=== PATIENT | male | born 1975 | race African-American/Black ===

== ENCOUNTER 2016-06-16 15:14 | Inpatient (IN) | payer OTHER ==
--- NOTE | 2016-06-16 15:51 | PDOC ---
[id number] 100 06/16/16 15:27 06/16/16 15:27 06/16/16 15:27 06/16/16 15:27 06/16/16 15:27 ED Treatment Course - LABORATORY CBC & Chemistry Diagram: 06/17/16 08:47 06/17/16 08:47 - RADIOLOGY Radiology Studies Ordered: Category Date Time Status CERVICAL SPINE CT W/O CONTR [CT] Stat CT Scan 06/16/16 15:[address] WITHOUT CONTRAST [CT] Stat CT Scan 06/16/16 15:42 Ordered Progress Note - Progress Note Progress Note: brief triage assessment 40 y/o man with hx of seizures on keppra, gerd on nexium presents with 2 falls in the last several days, hit head on Thursday, has right arm and leg weakness ongoing since last Thursday. His gait has been unsteady since Thursday and today he fell again in the shower, hitting his head, unclear if LOC or not. Also c/o generalized malaise without fever or any infectious symptoms. states there has been a lot of arguing and stress at home. PMH: seizures GERD Exam: initially mute, but with encouragement is able to speak and is alert and oriented x 3 with good recall of all details of his history head is without visible or palpable trauma perrl neck with tenderness and pain on rom chest clear heart rr abd soft extrem without trauma neuro with decreased strength right leg more than right arm, although the exam is somewhat variable in terms of the weakness assess: multiple falls, ongoing right sided weakness for 4 days, had some workup at another hospital and comes here now after another fall today with ongoing right sided weakness lab and ct head and c spine ordered, to main ed for further eval *DC/Admit/Observation/Transfer Diagnosis at time of Disposition: Right hemiparesis - Discharge Dispostion Disposition: HOME Condition at time of disposition: Fair
[2016-06-16 15:57] LABS: BASOPHIL 0.8 % (0-2.0); EOSINOPHIL 1.7 % (0-4.5); MCHC 32.9 g/dl (32.0-35.9); MEAN CELL VOLUME 97.4 fl (80-96); NEUTROPHILS 43.8 % (42.8-82.8); PLATELET COUNT 257 K/MM3 (134-434); RDW 13.4 % (11.9-15.9); WHITE BLOOD COUNT 7.3 K/mm3 (4.0-10.0)
[2016-06-16 16:35] LABS: ALBUMIN 3.8 g/dl (3.4-5.0); ALK PHOS 44 U/L (45-117); ANION GAP 6 (8-16); BILIRUBIN,TOTAL 0.4 mg/dL (0.2-1.0); CALCIUM 9.2 mg/dL (8.5-10.1); CO2 31 mmol/L (21-32); CREATININE 1.2 mg/dL (0.7-1.3); GLUCOSE,RANDOM 92 mg/dL (74-106); SGOT/AST 11 U/L (15-37); SGPT/ALT 8 U/L (12-78); TOT PROT 7.3 g/dl (6.4-8.2)
--- NOTE | 2016-06-16 16:43 | PDOC ---
History of Present Illness <Rui James - Last Filed: 06/16/16 17:57> - General History Source: Patient Exam Limitations: No Limitations - History of Present Illness Initial Comments: 06/16/16 18:11 The patient is a 40 year old male, left hand dominant, with a significant past medical history of seizures( on Keppra) and GERD (on Nexium) who presents to the ED with right sided weakness. He also reports neck and back pain. Patient has two seizures back to back 4 minutes apart according to . Patient has been paralysed on the right side since the seizures. Patient notes that he had 2 recent falls in the last several days and hit his head on Thursday. He has been experiencing unsteady gait since Thursday. Patient was seen in [facility] and has CT done of neck and head and was dx home. Patient made an appointment with Dr. Dorsey that is not until next month. As per the patient goes through waves of unresponsiveness and his alertness is much slower than usual. Patient was seen by Dr. Dorsey and he was placed on Keppra. As per patient was recently incarcerated and was able to stay compliant with his medication. Neurologist - Dr. Dorsey PCP - Dr. Kendrick <Germaine Lee - Last Filed: 06/16/16 18:54> - General Chief Complaint: Weakness Stated Complaint: NOT FEELING WELL Time Seen by Provider: 06/16/16 15:41 Past History - Past Medical History Anemia: No Asthma: No Cancer: No Cardiac Disorders: No CVA: No COPD: No CHF: No Dementia: No Diabetes: No GI Disorders: No Disorders: No HTN: Yes (NO MEDS) Hypercholesterolemia: No Liver Disease: Yes Seizures: Yes Thyroid Disease: No - Psycho/Social/Smoking Cessation Hx Anxiety: No Suicidal Ideation: No Smoking Status: Yes Smoking History: Current every day smoker Have you smoked in the past 12 months: Yes Number of Cigarettes Smoked Daily: 5 Information on smoking cessation initiated: Yes 'Breaking Loose' booklet given: 06/16/16 Hx Alcohol Use: No Drug/Substance Use Hx: No Substance Use Type: None <Rui James - Last Filed: 06/16/16 17:57> <Germaine Lee - Last Filed: 06/16/16 18:54> - Past Medical History Allergies/Adverse Reactions: Allergies Allergy/AdvReac Type Severity Reaction Status Date / Time No Known Allergies Allergy Verified 05/11/12 17:43 Home Medications: Ambulatory Orders Levetiracetam [Keppra -] 750 mg PO BID 06/16/16 Omeprazole Magnesium [Prilosec] 40 mg PO DAILY 06/16/16 Review of Systems - Review of Systems Able to Perform ROS?: Yes Comments:: 06/16/16 18:14 GENERAL/CONSTITUTIONAL: +right sided weakness. No fever or chills. HEAD, EYES, EARS, NOSE AND THROAT: No change in vision. No ear pain or discharge. No sore throat. CARDIOVASCULAR: No chest pain or shortness of breath. RESPIRATORY: No cough, wheezing, or hemoptysis. GASTROINTESTINAL: No nausea, vomiting, diarrhea or constipation. GENITOURINARY: No dysuria, frequency, or change in urination. MUSCULOSKELETAL: +back pain, +neck pain. No joint or muscle swelling or pain. SKIN: No rash NEUROLOGIC: No headache, vertigo, loss of consciousness, or change in strength/ sensation. ENDOCRINE: No increased thirst. No abnormal weight change. HEMATOLOGIC/LYMPHATIC: No anemia, easy bleeding, or history of blood clots. ALLERGIC/IMMUNOLOGIC: No hives or skin allergy. <Germaine Lee - Last Filed: 06/16/16 18:54> *Physical Exam - Vital Signs Last Vital Signs Temp Pulse Resp BP Pulse Ox 98.1 F 62 18 151/78 100 06/16/16 15:27 06/16/16 15:27 06/16/16 15:27 06/16/16 15:27 06/16/16 15:27 <Rui James - Last Filed: 06/16/16 17:57> - Vital Signs Last Vital Signs Temp Pulse Resp BP Pulse Ox 98.1 F 62 18 151/78 100 06/16/16 15:27 06/16/16 15:27 06/16/16 15:27 06/16/16 15:27 06/16/16 15:27 - Physical Exam Comments: 06/16/16 18:16 GENERAL: Awake, alert, and fully oriented, in no acute distress HEAD: No signs of trauma EYES: PERRLA, EOMI, sclera anicteric, conjunctiva clear ENT: Auricles normal inspection, hearing grossly normal, nares patent, oropharynx clear without exudates. Moist mucosa NECK: Normal ROM, supple, no lymphadenopathy, JVD, or masses LUNGS: Breath sounds equal, clear to auscultation bilaterally. No wheezes, and no crackles HEART: Regular rate and rhythm, normal S1 and S2, no murmurs, rubs or gallops ABDOMEN: Soft, nontender, normoactive bowel sounds. No guarding, no rebound. No masses EXTREMITIES: ++with decreased strength right leg more than right arm. Normal range of motion, no edema. No clubbing or cyanosis. No cords, erythema, or tenderness NEUROLOGICAL: Cranial nerves II through XII grossly intact. SKIN: Warm, Dry, normal turgor, no rashes or lesions noted. <Germaine Lee - Last Filed: 06/16/16 18:54> Heart Score/ECG Review #1 06/16/16 18:52 EKG was reviewed by Dr. James Impression: Sinus bradycardia at 51 bpm Rightward axis Nonspecific ST abnormality <Germaine Lee - Last Filed: 06/16/16 18:54> ED Treatment Course - LABORATORY CBC & Chemistry Diagram: 06/16/16 15:40 06/16/16 15:40 - ADDITIONAL ORDERS Additional order review: Laboratory Results 06/16/16 15:40 Sodium 141 Potassium 4.4 Chloride 104 Carbon Dioxide 31 Anion Gap 6 L BUN 6 L D Creatinine 1.2 Creat Clearance w eGFR > 60 Random Glucose 92 Calcium 9.2 Total Bilirubin 0.4 D AST 11 L ALT 8 L D Alkaline Phosphatase 44 L Total Protein 7.3 Albumin 3.8 06/16/16 15:40 RBC 4.40 MCV 97.4 H MCHC 32.9 RDW 13.4 MPV 7.0 L Neutrophils % 43.8 D Lymphocytes % 46.4 H D Monocytes % 7.3 Eosinophils % 1.7 D Basophils % 0.8 <Rui James - Last Filed: 06/16/16 17:57> - LABORATORY CBC & Chemistry Diagram: 06/16/16 15:40 06/16/16 15:40 - ADDITIONAL ORDERS Additional order review: Laboratory Results 06/16/16 15:40 Sodium 141 Potassium 4.4 Chloride 104 Carbon Dioxide 31 Anion Gap 6 L BUN 6 L D Creatinine 1.2 Creat Clearance w eGFR > 60 Random Glucose 92 Calcium 9.2 Total Bilirubin 0.4 D AST 11 L ALT 8 L D Alkaline Phosphatase 44 L Total Protein 7.3 Albumin 3.8 06/16/16 15:40 RBC 4.40 MCV 97.4 H MCHC 32.9 RDW 13.4 MPV 7.0 L Neutrophils % 43.8 D Lymphocytes % 46.4 H D Monocytes % 7.3 Eosinophils % 1.7 D Basophils % 0.8 <Germaine Lee - Last Filed: 06/16/16 18:54> Medical Decision Making - Medical Decision Making 06/16/16 18:11 The patient is a 40 year old male, left hand dominant, with a significant past medical history of seizures( on Keppra), Gokul's paralysis, and GERD (on Nexium) who presents to the ED with right sided weakness, neck and back pain. Patient's lab and scans were reviewed. Will admit patient and he will need neuro eval. A call was placed to Dr. Dorsey case was discussed and he will present to the ED to see the patient. A call was placed to Dr. Cook who is a doctor motion designer for medicine. Who will accept an admission. <Germaine Lee - Last Filed: 06/16/16 18:54> *DC/Admit/Observation/Transfer - Attestations Physician Attestion: 06/16/16 16:43 I, Dr. Rui James, attest that this document has been prepared under my direction and personally reviewed by me in its entirety. I further attest, that it accurately reflects all work, treatment, procedures and medical decision -making performed by me. <Rui James - Last Filed: 06/16/16 17:57> - Attestations Scribe Attestion: 06/16/16 18:14 Documentation prepared by VIDAL Faye, acting as medical billing and coding specialist for Rui James MD/. <Germaine Lee - Last Filed: 06/16/16 18:54> Diagnosis at time of Disposition: Gokul's paralysis (postepileptic), Seizure disorder
--- NOTE | 2016-06-16 18:41 | CON.NEURO ---
Consult Consult Specialty:: [facility] Referred by:: Senait - History of Present Illness History of Present Illness: 40 years old man with PMH Seizure disorder had two seizure on Thursday [facility] when to [facility] and was dc home came to the Er with right sided weakness patient mom also gets seizure No seizure in the ER - History Source History Provided By: Patient, Family Member Limitations to Obtaining History: Clinical Condition - Alcohol/Substance Use Hx Alcohol Use: No - Smoking History Smoking history: Current every day smoker Have you smoked in the past 12 months: Yes Aproximately how many cigarettes per day: 5 Home Medications - Allergies Allergies/Adverse Reactions: Allergies Allergy/AdvReac Type Severity Reaction Status Date / Time No Known Allergies Allergy Verified 05/11/12 17:43 - Home Medications Home Medications: Ambulatory Orders Levetiracetam [Keppra -] 750 mg PO BID 06/16/16 Omeprazole Magnesium [Prilosec] 40 mg PO DAILY 06/16/16 Family Disease History - Family Disease History Family History: Denies (cva) Review of Systems - Review of Systems Constitutional: reports: No Symptoms Eyes: reports: No Symptoms Neurological: reports: Dizziness, Headache, Incoordination, Parasthesia Physical Exam-Neuro Vital Signs: Vital Signs Temperature 98.1 F 06/16/16 15:27 Pulse Rate 62 06/16/16 15:27 Respiratory Rate 18 06/16/16 15:27 Blood Pressure 151/78 06/16/16 15:27 O2 Sat by Pulse Oximetry (%) 100 06/16/16 15:27 Constitutional: Yes: Well Nourished Neck: Yes: WNL Respiratory: Yes: WNL Gastrointestinal: Yes: WNL Labs: CBC, BMP 06/16/16 15:40 06/16/16 15:40 - Neuro Exam Level Of Consciousness: Yes: Oriented to Person, Oriented to Place, Oriented to Time Eyes: Yes: PERRLA Speech: WNL Dominant Hand: Right Cranial Nerves II-XII Intact: Yes Gag: Present DTR's: 1+ Left Bicep, 1+ Right Bicep, 1+ Left Tricep, 1+ Right Tricep Response to light touch: Normal Response to pain prick: Normal Response to temperature: Normal Motor Strength: 3/5: Right Arm, Right Leg (mild drift ), 4/5: Left Arm, Left Leg Gait: Deferred Imaging - Results Cat Scan: Image Reviewed Problem List - Problems (1) Seizure disorder Code(s): G40.909 - EPILEPSY, UNSP, NOT INTRACTABLE, WITHOUT STATUS EPILEPTICUS (2) Gokul's paralysis (postepileptic) Code(s): G83.84 - GOKUL'S PARALYSIS (POSTEPILEPTIC) Assessment/Plan breakthrough seizure with Todds Paralysis No clinical seizure fall precautions seizure precautions keppra level Only if he get worse will get an MRI Todds can last up to five days Thank you for the kind referral
[2016-06-17 05:34] VITALS: BMI 22.7
[2016-06-17 08:51] LABS: BASOPHIL 0.5 % (0-2.0); EOSINOPHIL 0.9 % (0-4.5); MCH 31.7 pg (25.7-33.7); MCHC 32.6 g/dl (32.0-35.9); MEAN CELL VOLUME 97.2 fl (80-96); NEUTROPHILS 56.5 % (42.8-82.8); PLATELET COUNT 237 K/MM3 (134-434); RDW 13.2 % (11.9-15.9); WHITE BLOOD COUNT 6.9 K/mm3 (4.0-10.0)
[2016-06-17 09:17] LABS: ALBUMIN 3.6 g/dl (3.4-5.0); ANION GAP 8 (8-16); BILIRUBIN,TOTAL 0.4 mg/dL (0.2-1.0); CALCIUM 9.1 mg/dL (8.5-10.1); CO2 29 mmol/L (21-32); CREATININE 1.2 mg/dL (0.7-1.3); GLUCOSE,RANDOM 80 mg/dL (74-106); SGOT/AST 8 U/L (15-37); SGPT/ALT 10 U/L (12-78)
[2016-06-17 09:18] LABS: ALK PHOS 46 U/L (45-117)
[2016-06-17] MEDS ORDERED: PANTOPRAZOLE 40 MG TABLET (FP) PO SCH (10:00)
[2016-06-17] MEDS ORDERED: levETIRAcetam 250 MG TABLET (FP) PO SCH (10:00)
[2016-06-17] MEDS ORDERED: ENOXAPARIN NA (PORCINE) 40 MG/0.4 ML DISP.SYRIN SQ SCH (10:00)
--- NOTE | 2016-06-17 10:28 | EKG ---
Test Reason : Blood Pressure : / mmHG Vent. Rate : 051 BPM Atrial Rate : 051 BPM P-R Int : 146 ms QRS Dur : 092 ms QT Int : 410 ms P-R-T Axes : 074 090 073 degrees QTc Int : 377 ms SINUS BRADYCARDIA NONSPECIFIC T WAVE ABNORMALITY ABNORMAL ECG NO PREVIOUS ECGS AVAILABLE Confirmed by NATHANIEL SCOTT MD ([id number]) on 06/17/2016 10:28:22 AM Referred By: Confirmed By:NATHANIEL SCOTT MD
--- NOTE | 2016-06-17 12:24 | PN ---
Progress Note (short form) - Note Progress Note: Neurology Follow up 40 year old male left handed male with pmh seizure disorder and family h/o seizure disorder (mother) presented to the ED s/p seizure with right side weakness. Pt had 2 witnessed tonic clonic seizure on Thursday last 4 mn each and resolving spontaneously. Pt usually has an aura before seizure with seeing dots and some dizziness but this time there was none. Pt just lost consciousness, fell on the floor and started convulsing. The patient hit his right face and right shoulder/arm but no major bruises or swelling. Pt did not experience any incontinence, lips biting but he was confused and sleepy for about one hour after the seizure. Pt has been on Keppra since [id number]. Pt said he is compliant to medications. Pt usually get seizure very 3-4 month on Keppra. The patient admitted that he has not taking keppra for the last 2 months prior to the seizure because of lack of insurance and being incarcerated. He denies frequent alcohol use. Denies any h/o alcohol withdrawal. Denies recreational drug use. No recent illness/cold/dehydration. Pt said he has only been sleeping for 4 hours per night and has had many family problems. He has just been release from penitentiary and his son in penitentiary right now. Post seizure pt has right sided weakness and was unable to walk but the weakness has gradually resolved over the past 2 days and now he is near normal. This was likely Gokul's Paralysis. In the ED pt received IV keppra on Thursday and was placed Keppra PO 750mg BID starting Thursday. Active Medications Enoxaparin Sodium (Lovenox -) 40 mg SQ DAILY [facility] Last Admin: 06/17/16 09:32 Dose: 40 mg Levetiracetam (Keppra -) 750 mg PO BID [facility] Last Admin: 06/17/16 09:32 Dose: 750 mg Pantoprazole Sodium (Protonix -) 40 mg PO DAILY [facility] Last Admin: 06/17/16 09:32 Dose: 40 mg Vital Signs Temperature 98.4 F 06/17/16 09:29 Pulse Rate 56 L 06/17/16 09:29 Respiratory Rate 20 06/17/16 09:29 Blood Pressure 134/82 06/17/16 09:29 O2 Sat by Pulse Oximetry (%) 100 06/16/16 21:00 PHYSICAL EXAM GENERAL: Well developed, well nourished. Awake and alert. No acute distress. HEENT: Normocephalic, atraumatic. PERRLA, EOMI. No conjunctival pallor. Sclera are non- icteric. Moist mucous membranes. Oropharynx is clear. Missing teeth, gold teeth NECK: Supple. Full ROM. No JVD. Carotid pulses 2+ and symmetric, without bruits. No thyromegaly. No lymphadenopathy. No cervical spine tenderness CARDIOVASCULAR: Regular rate and rhythm. No murmurs, rubs, or gallops. Distal pulses are 2+ and symmetric. PULMONARY: No evidence of respiratory distress. Lungs clear to auscultation bilaterally. No wheezing, rales or rhonchi. ABDOMINAL: Soft. Non-tender. Non-distended. No rebound or guarding. No organomegaly. Normoactive bowel sounds. MUSCULOSKELETAL Normal range of motion at all joints. No bony deformities or tenderness. No CVA tenderness. EXTREMITIES: No cyanosis. No clubbing. No edema. No calf tenderness. SKIN: Warm and dry. Normal capillary refill. No rashes. No jaundice. NEUROLOGICAL: Alert, awake, appropriate. Normal speech. No facial asymmetry or droop. Cranial nerves 2-12 intact. No deficits to light touch and temperature in face, upper extremities and lower extremities. No motor deficits in the in face, upper extremities equal strength 5/5 and lower extremities equal strength 5/5 . Normoreflexic in the upper and lower extremities (Bicept reflex 2+ b/l , brachioradialis reflex 2+ b/l. patellar reflex 2+ b/l, normal plantar reflex, Toes are down-going bilaterally. Normal rhomberg test. Normal rapid alternating movement. Normal finger to nose. Gait is normal without ataxia. PSYCHIATRIC: Cooperative. Good eye contact. Appropriate mood and affect. CBCD WBC 6.9 K/mm3 (4.0-10.0) 06/17/16 08:47 RBC 4.34 M/mm3 (4.00-5.60) 06/17/16 08:47 Hgb 13.8 GM/dL (11.7-16.9) 06/17/16 08:47 Hct 42.2 % (35.4-49) 06/17/16 08:47 MCV 97.2 fl (80-96) H 06/17/16 08:47 MCHC 32.6 g/dl (32.0-35.9) 06/17/16 08:47 RDW 13.2 % (11.9-15.9) 06/17/16 08:47 Plt Count 237 K/MM3 (134-434) 06/17/16 08:47 MPV 7.0 fl (7.5-11.1) L 06/17/16 08:47 CMP Sodium 141 mmol/L (136-145) 06/17/16 08:47 Potassium 4.5 mmol/L (3.5-5.1) 06/17/16 08:47 Chloride 104 mmol/L (98-107) 06/17/16 08:47 Carbon Dioxide 29 mmol/L (21-32) 06/17/16 08:47 Anion Gap 8 (8-16) 06/17/16 08:47 BUN 7 mg/dL (7-18) 06/17/16 08:47 Creatinine 1.2 mg/dL (0.7-1.3) 06/17/16 08:47 Creat Clearance w eGFR > 60 (>60) 06/17/16 08:47 Calcium 9.1 mg/dL (8.5-10.1) 06/17/16 08:47 Total Bilirubin 0.4 mg/dL (0.2-1.0) 06/17/16 08:47 AST 8 U/L (15-37) L D 06/17/16 08:47 ALT 10 U/L (12-78) L D 06/17/16 08:47 Alkaline Phosphatase 46 U/L (45-117) 06/17/16 08:47 Total Protein 7.0 g/dl (6.4-8.2) 06/17/16 08:47 Albumin 3.6 g/dl (3.4-5.0) 06/17/16 08:[address] head 06/16/16 No evidence of acute intracranial pathology. 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 ASSESSMENT 40 year old male with pmh of seizure disorder presented to s/p 2 episode of tonic clonic seizure after not taking his keppra for the last 2 months. Following the seizures pt develop by right sided weakness which has nearly resolved with 72 hours. Gokul's paralysis. Negative CT head, no major stroke risk factor (Age, AFIB, PAD, CAD, HTN, DM, HPLD, Obesity, Smoking, Sickle cell, hypercoagulability, physical inactivity, Vasculitis, ALCOHOL). No brain mass or infection seen on CT head, normal CBC and CMP. PLAN Keppa level Continue Keppra 750mg twice daily Medication compliance is most important in this case Seizure precaution discussed Neurology follow with me or Dr Toure Stroke risk factor work up Neurologically stable, patient requesting discharge
[2016-06-17 12:54] LABS: URINE MARIJUANA THC POSITIVE ng/ml (CUTOFF=50)
[2016-06-17 14:20] VITALS: BP 133/73; PULSE 69; TEMP 98
--- NOTE | 2016-06-17 16:17 | HP ---
Admitting History and Physical - Admission History of Present Illness: The patient is a 40 year old male, left hand dominant, with a significant past medical history of seizures( on Keppra) and GERD (on Nexium) who presents to the ED with right sided weakness. He also reports neck and back pain. Patient has two seizures back to back 4 minutes apart according to . Patient has been paralysed on the right side since the seizures. Patient notes that he had 2 recent falls in the last several days and hit his head on Thursday. He has been experiencing unsteady gait since Thursday. Patient was seen in [facility] and has CT done of neck and head and was nc'ed home. Patient made an appointment with Dr. Dorsey that is not until next month. As per the patient goes through waves of unresponsiveness and his alertness is much slower than usual. Patient was seen by Dr. Dorsey and he was placed on Keppra. As per patient was recently incarcerated and was able to stay compliant with his medication. History Source: Patient, Medical Record - Past Medical History PIPELINE OPERATOR: Yes: Seizure - Smoking History Smoking history: Current every day smoker Have you smoked in the past 12 months: Yes Aproximately how many cigarettes per day: 5 - Alcohol/Substance Use Hx Alcohol Use: No Home Medications - Allergies Allergies/Adverse Reactions: Allergies Allergy/AdvReac Type Severity Reaction Status Date / Time No Known Allergies Allergy Verified 09/17/16 12:44 - Home Medications Home Medications: Ambulatory Orders Levetiracetam [Keppra -] 750 mg PO BID 06/16/16 Omeprazole Magnesium [Prilosec] 40 mg PO DAILY 06/16/16 Family Disease History - Family Disease History Family History: Unremarkable Review of Systems - Review of Systems Constitutional: reports: No Symptoms Eyes: reports: No Symptoms HENT: reports: No Symptoms Neck: reports: No Symptoms Cardiovascular: reports: No Symptoms Respiratory: reports: No Symptoms Gastrointestinal: reports: No Symptoms Physical Examination Vital Signs: Vital Signs Temperature 98.0 F 06/17/16 14:15 Pulse Rate 69 06/17/16 14:15 Respiratory Rate 12 06/17/16 14:15 Blood Pressure 133/73 06/17/16 14:15 O2 Sat by Pulse Oximetry (%) 96 06/17/16 09:00 Eyes: Yes: WNL HENT: Yes: WNL Neck: Yes: WNL, Supple Cardiovascular: Yes: WNL, Regular Rate and Rhythm Respiratory: Yes: WNL, Regular, CTA Bilaterally Gastrointestinal: Yes: WNL, Normal Bowel Sounds, Soft Musculoskeletal: Yes: WNL Extremities: Yes: WNL Edema: No Labs: CBC, BMP 06/17/16 08:47 06/17/16 08:47 Problem List - Problems (1) Seizures Assessment/Plan: As per neuro Cont keppra Code(s): R56.9 - UNSPECIFIED CONVULSIONS (2) Right hemiparesis Code(s): G81.91 - HEMIPLEGIA, UNSPECIFIED AFFECTING RIGHT DOMINANT SIDE
== END 2016-06-17 16:34 | disposition home or self-care (01) | DRG 53 ==
LOC: JER 15:14 → JERBED 18:13 → J8W 20:53
PROVIDERS: ADMIT Internal Medicine; ATTEND Internal Medicine
DX: G40.909 Epilepsy, unspecified, not intractable, without status epilepticus (principal); G83.84 Todd's paralysis (postepileptic); F17.210 Nicotine dependence, cigarettes, uncomplicated; K21.9 Gastro-esophageal reflux disease without esophagitis
CPT/HCPCS: 36415; 70450-TC; 72125-TC; 80053; 80307; 85025; 93005; 93010; 99283-25

== ENCOUNTER 2016-09-14 16:01 | Emergency (ER) | payer OTHER ==
[2016-09-14 16:15] VITALS: BP 131/70; PULSE 64; TEMP 97.9; BMI 20.6
== END 2016-09-14 17:24 | disposition left against medical advice (07) ==
LOC: JERFT 16:01
DX: Z53.21 Procedure and treatment not carried out due to patient leaving prior to being seen by health care provider (principal)
CPT/HCPCS: 99281-25

== ENCOUNTER → 2016-09-15 | Emergency (ER) | payer OTHER ==
[~2016-09-15] MED LIST: levETIRAcetam 500 MG/5 ML INJECTION VIAL IVPB ONE
[2016-09-15 23:58] VITALS: BMI 20.6
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
[2016-09-16 01:44] LABS: BASOPHIL 0.4 % (0-2.0); EOSINOPHIL 0.5 % (0-4.5); MCHC 32.7 g/dl (32.0-35.9); MEAN CELL VOLUME 97.7 fl (80-96); MEAN PLT VOLUME 7.2 fl (7.5-11.1); NEUTROPHILS 35.5 % (42.8-82.8); PLATELET COUNT 298 K/MM3 (134-434); RDW 13.9 % (11.9-15.9); WHITE BLOOD COUNT 5.9 K/mm3 (4.0-10.0)
[2016-09-16 01:58] LABS: INR 1.17 (0.82-1.09); PROTHROMBIN TIME (PATIENT) 12.9 SEC (9.98-11.88)
[2016-09-16 02:12] LABS: ALBUMIN 3.9 g/dl (3.4-5.0); BILIRUBIN,TOTAL 0.4 mg/dL (0.2-1.0); CALCIUM 9.1 mg/dL (8.5-10.1); COCKROFT - GAULT 69.08; CREATININE 1.4 mg/dL (0.7-1.3); TOT PROT 7.7 g/dl (6.4-8.2)
[2016-09-16 02:57] VITALS: BP 133/100; PULSE 65
== END | disposition home or self-care (01) ==
LOC: JER 23:23
PROC: 3E033GC Introduction of Other Therapeutic Substance into Peripheral Vein, Percutaneous Approach (ICD-10-PCS; principal; 2016-09-15)
DX: G40.909 Epilepsy, unspecified, not intractable, without status epilepticus (principal); I10 Essential (primary) hypertension; K21.9 Gastro-esophageal reflux disease without esophagitis; F17.210 Nicotine dependence, cigarettes, uncomplicated
CPT/HCPCS: 36415; 70450-TC; 71101-TC; 80053; 85025; 85610; 96374; 99283-25

== ENCOUNTER 2016-09-17 12:38 | Emergency (ER) | payer OTHER ==
[2016-09-17 12:44] VITALS: TEMP 97.8; BMI 19.1
--- NOTE | 2016-09-17 12:56 | PDOC ---
History of Present Illness - General Chief Complaint: Hematuria Stated Complaint: REVISIT Time Seen by Provider: 09/17/16 12:53 History Source: Patient Exam Limitations: No Limitations - History of Present Illness Initial Comments: CHIEF COMPLAINT: 40 y/o afebrile male, accompanied by , with PMH seizures ( on Keppra) with right sided weakness, GERD (on Nexium), HTN, hiatal hernia c/o blood in his urine and left testicular pain x 2 days. HISTORY OF PRESENT ILLNESS: The patient states the symptoms began yesterday. He also admits to dysuria. He denies fever, chills, cough, n/v/d, CP, SOB, abd pain, back pain, increased urinary frequency, decreased urinary stream, redness/ swelling/elevation to testicles. PCP: Dr. Kendrick NEURO: Dr. Dorsey SOCIAL HISTORY: Smoker 1ppd ALLERGIES: NKDA Vital signs on arrival are within normal limits. REVIEW OF SYSTEMS: GENERAL/CONSTITUTIONAL: No fever/chills. No weakness. No weight change. HEAD, EYES, EARS, NOSE AND THROAT: No change in vision. No ear pain or discharge. No sore throat. CARDIOVASCULAR: No chest pain or shortness of breath. RESPIRATORY: No cough, wheezing, or hemoptysis. GASTROINTESTINAL: No abd pain, nausea, vomiting, diarrhea. GENITOURINARY: +dysuria and hematuria. +left testicle pain. MUSCULOSKELETAL: No joint or muscle swelling or pain. No neck or back pain. SKIN: No rash or easy bruising. NEUROLOGIC: No headache, vertigo, loss of consciousness, or loss of sensation. PHYSICAL EXAM: GENERAL: The patient is awake, alert, and fully oriented, in no acute distress. HEAD: Normal with no signs of trauma. ENT: Pupils equal, round and reactive to light, extraocular movements intact, sclera anicteric, conjunctiva clear. Neck supple. LUNGS: Clear to auscultation bilaterally. Normal excursion. No respiratory distress or use of accessory muscles. CV: RRR, S1/S2, no MRG. Cap refill < 2 sec. ABDOMEN: Soft, non-distended, non-tender even to deep palpation, no hepatomegaly or splenomegaly, no masses. GENITALIA: Reproducible pain with palpation of left testicle. No erythema, edema, warmth or elevation of testicles. No obvious rashes or lesions. EXTREMITIES: Normal range of motion, no edema. NEUROLOGICAL: A&O x 3. CN II-XII grossly intact. PSYCH: Normal mood, normal affect. SKIN: Warm, dry, normal turgor, no rashes or lesions noted. Past History - Past Medical History Allergies/Adverse Reactions: Allergies Allergy/AdvReac Type Severity Reaction Status Date / Time No Known Allergies Allergy Verified 09/17/16 12:44 Home Medications: Ambulatory Orders Levetiracetam [Keppra -] 750 mg PO BID 06/16/16 Omeprazole Magnesium [Prilosec] 40 mg PO DAILY 06/16/16 Anemia: No Asthma: No Cancer: No Cardiac Disorders: No CVA: No COPD: No CHF: No Dementia: No Diabetes: No GI Disorders: No Disorders: No HTN: No (PT DENIES) Hypercholesterolemia: No Liver Disease: No Seizures: Yes Thyroid Disease: No Other medical history: HERNIA - Psycho/Social/Smoking Cessation Hx Anxiety: No Suicidal Ideation: No Smoking Status: Yes Smoking History: Never smoked Have you smoked in the past 12 months: Yes Number of Cigarettes Smoked Daily: 20 'Breaking Loose' booklet given: 06/17/16 Hx Alcohol Use: No Drug/Substance Use Hx: No Substance Use Type: None Hx Substance Use Treatment: No *Physical Exam - Vital Signs Last Vital Signs Temp Pulse Resp BP Pulse Ox 97.8 F 80 20 122/66 98 09/17/16 12:39 09/17/16 12:39 09/17/16 12:39 09/17/16 12:39 09/17/16 12:39 Medical Decision Making - Medical Decision Making A/P: 40 y/o male with hematuria, dysuria and left testicle pain x 2 days. Plan is as follows: 1. UA/culture/GC/Chlamydia 2. Scrotal ultrasound Scrotal Ultrasound IMPRESSION: Small right and even smaller left hydrocele. UA with 7 RBCs Will wait for culture. The patient states this has happened before. I suggested he f/u with a Urologist, drink plenty of fluids and return to the ER with any worsening or concerning symptoms. The patient verbalizes understanding of all instructions, has no further questions and is awaiting discharge. *DC/Admit/Observation/Transfer Diagnosis at time of Disposition: Hematuria, Testicular pain, left - Discharge Dispostion Disposition: HOME Condition at time of disposition: Good - Referrals Referrals: Liam Karimi MD [Staff Physician] - 14 days - Patient Instructions Printed Discharge Instructions: DI for Hematuria, DI for Testicular Pain Additional Instructions: Discharge Instructions: -Take over the counter motrin or tylenol for pain -Drink at least 64oz of water daily -Follow up with Dr. Karimi within 1 week -Return to the ER with any worsening or concerning symptoms
[2016-09-17 13:49] LABS: URINE APPEARANCE CLEAR; URINE BILIRUBIN NEGATIVE (NEGATIVE); URINE BLOOD NEGATIVE (NEGATIVE); URINE COLOR YELLOW; URINE GLUCOSE (UA) NEGATIVE (NEGATIVE); URINE KETONE TRACE (NEGATIVE); URINE NITRITE NEGATIVE (NEGATIVE); URINE UROBILINOGEN 2.0 E.U/dl E.U./dl (0.2-1.0)
[2016-09-17 13:53] LABS: URINE LEUK ESTERASE TRACE (NEGATIVE); URINE PROTEIN 1+ (NEGATIVE)
[2016-09-17 13:56] LABS: URINE MUCUS MODERATE; URINE RBC 7 /hpf (0-3); URINE WBC 2 /hpf (3-5)
--- NOTE | 2016-09-17 14:07 | PDOC ---
*Physical Exam - Vital Signs Last Vital Signs Temp Pulse Resp BP Pulse Ox 97.8 F 80 20 122/66 98 09/17/16 12:39 09/17/16 12:39 09/17/16 12:39 09/17/16 12:39 09/17/16 12:39 ED Treatment Course - ADDITIONAL ORDERS Additional order review: Laboratory Results 09/17/16 13:30 Urine Color Yellow Urine Appearance Clear Urine pH 5.0 Urine Protein 1+ H Urine Glucose (UA) Negative Urine Ketones Trace H Urine Blood Negative Urine Nitrite Negative Urine Bilirubin Negative Urine Urobilinogen 2.0 e.u/dl Ur Leukocyte Esterase Trace H Urine RBC 7 Urine WBC 2 Ur Epithelial Cells Rare Urine Mucus Moderate Medical Decision Making - Medical Decision Making 09/17/16 14:07 Pt seen by Midlevel Provider under my direct supervision Ancillary studies reviewed I agree with plan as outlined by Midlevel Provider *DC/Admit/Observation/Transfer Diagnosis at time of Disposition: Hematuria, Testicular pain, left - Discharge Dispostion Disposition: HOME Condition at time of disposition: Good - Referrals Referrals: Liam Karimi MD [Staff Physician] - 14 days - Patient Instructions Printed Discharge Instructions: DI for Hematuria, DI for Testicular Pain Additional Instructions: Discharge Instructions: -Take over the counter motrin or tylenol for pain -Drink at least 64oz of water daily -Follow up with Dr. Karimi within 1 week -Return to the ER with any worsening or concerning symptoms
[2016-09-17 16:58] VITALS: BP 118/65; PULSE 79
== END 2016-09-17 17:02 | disposition home or self-care (01) ==
LOC: JER 12:38
DX: N43.2 Other hydrocele (principal); I10 Essential (primary) hypertension; Z86.69 Personal history of other diseases of the nervous system and sense organs
CPT/HCPCS: 36415; 76870-TC; 81003; 81015; 87086; 87491; 87591; 99284-25

== ENCOUNTER 2017-01-07 12:18 | Emergency (ER) | payer OTHER ==
[2017-01-07 12:26] VITALS: BP 110/58; PULSE 90; TEMP 98.3; BMI 19.0
[2017-01-07 14:23] LABS: EOSINOPHIL 0.5 % (0-4.5); MCHC 33.2 g/dl (32.0-35.9); MEAN CELL VOLUME 99.4 fl (80-96); MEAN PLT VOLUME 6.9 fl (7.5-11.1); NEUTROPHILS 46.4 % (42.8-82.8); PLATELET COUNT 254 K/MM3 (134-434); RDW 12.8 % (11.9-15.9); WHITE BLOOD COUNT 8.7 K/mm3 (4.0-10.0)
[2017-01-07 14:48] LABS: ALBUMIN 3.8 g/dl (3.4-5.0); ANION GAP 6 (8-16); CO2 30 mmol/L (21-32); CREATININE 1.1 mg/dL (0.7-1.3); GLUCOSE,RANDOM 69 mg/dL (74-106); SGOT/AST 13 U/L (15-37); SGPT/ALT 13 U/L (12-78)
[2017-01-07 14:50] LABS: ALK PHOS 50 U/L (45-117); BILIRUBIN,TOTAL 0.5 mg/dL (0.2-1.0); TOT PROT 7.3 g/dl (6.4-8.2)
--- NOTE | 2017-01-07 14:56 | PDOC ---
History of Present Illness - General Chief Complaint: Rectal Bleed Stated Complaint: BLOOD IN STOOL Time Seen by Provider: 01/07/17 13:01 History Source: Patient - History of Present Illness Timing/Duration: reports: other (2 months) Past History - Past Medical History Allergies/Adverse Reactions: Allergies Allergy/AdvReac Type Severity Reaction Status Date / Time No Known Allergies Allergy Verified 01/07/17 12:24 Home Medications: Ambulatory Orders Levetiracetam [Keppra -] 750 mg PO BID 06/16/16 Omeprazole Magnesium [Prilosec] 40 mg PO DAILY 06/16/16 Anemia: No Asthma: No Cancer: No Cardiac Disorders: No CVA: No COPD: No CHF: No Dementia: No Diabetes: No GI Disorders: Yes (GASTRITIS) Disorders: No HTN: No (PT DENIES) Hypercholesterolemia: No Liver Disease: No Seizures: Yes Thyroid Disease: No - Psycho/Social/Smoking Cessation Hx Anxiety: No Suicidal Ideation: No Smoking Status: Yes Smoking History: Never smoked Have you smoked in the past 12 months: Yes Number of Cigarettes Smoked Daily: 20 Information on smoking cessation initiated: No 'Breaking Loose' booklet given: 06/17/16 Hx Alcohol Use: No Drug/Substance Use Hx: No Substance Use Type: Marijuana Hx Substance Use Treatment: No Review of Systems - Review of Systems Constitutional: No: Chills, Fever, Weakness, Unexplained wgt Loss Respiratory: No: Shortness of Breath ABD/GI: Yes: Blood Streaked Bowels, Constipated. No: Diarrhea, Nausea, Vomiting , Abdominal cramping *Physical Exam - Vital Signs Last Vital Signs Temp Pulse Resp BP Pulse Ox 98.3 F 90 18 110/58 100 01/07/17 12:19 01/07/17 12:19 01/07/17 12:19 01/07/17 12:19 01/07/17 12:19 - Physical Exam General Appearance: Yes: Appropriately Dressed. No: Apparent Distress HEENT: positive: Normal Voice Neck: positive: Supple Respiratory/Chest: negative: Respiratory Distress Gastrointestinal/Abdominal: positive: Soft. negative: Tender Rectal Exam: positive: other (soft brown stool w/ trace BRB on finger) Extremity: positive: Normal Inspection Integumentary: positive: Dry, Warm Neurologic: positive: Fully Oriented, Alert, Normal Mood/Affect ED Treatment Course - LABORATORY CBC & Chemistry Diagram: 01/07/17 14:10 01/07/17 14:10 - ADDITIONAL ORDERS Additional order review: 01/07/17 14:10 RBC 4.13 MCV 99.4 H MCHC 33.2 RDW 12.8 MPV 6.9 L Neutrophils % 46.4 D Lymphocytes % 45.7 H Monocytes % 6.4 Eosinophils % 0.5 Basophils % 1.0 Medical Decision Making - Medical Decision Making 01/07/17 14:15 41 yo male, h/o GERD on prilosec, seizures on keppra, with hematochezia. Patient reports intermittent bright red blood per rectum at times associated with constipation and possible hemorrhoids (rectal bulge) 2 months. Patient states this is a first time he is seeking medical evaluation. Unclear as to why he presented today as admits that symptoms have not worsened. Denies any abd pain, dizziness, weakness or unexplained weight loss. Last colonoscopy/ endoscopy was in 2013 when patient was diagnosed with GERD See exam Intermittent hematochezia in setting of possible constipation x 2 months H/o GERD, denies melena Unremarkable colonoscopy 2013 Stable and well dane w/ brown stool w/ trace BRB on finger, no melena, no hemorrhoids or obvious fissure observed -will check crit -anticipate dc w/ GI f/u 01/07/17 15:04 Labs wnl. Pt stable for discharge w/ GI f/u *DC/Admit/Observation/Transfer Diagnosis at time of Disposition: Hematochezia - Discharge Dispostion Disposition: HOME Condition at time of disposition: Good - Referrals Referrals: Meenakshi Ribera MD [Primary Care Provider] - Efra Rodriguez DO [Staff Physician] - - Patient Instructions Printed Discharge Instructions: DI for Rectal Bleeding Additional Instructions: Your blood work were normal and you are not anemic (Hemoglobin 13 which is normal) The cause of your rectal bleeding could be due to intermittent hemorrhoids or fissures Drink plenty of fluids and eat more fruits and veggies to allow easier bowel movement Please follow up with Dr Rodriguez of GI
== END 2017-01-07 15:21 | disposition home or self-care (01) ==
LOC: JER 12:18
DX: K92.1 Melena (principal); K59.00 Constipation, unspecified; G40.909 Epilepsy, unspecified, not intractable, without status epilepticus; Z87.19 Personal history of other diseases of the digestive system
CPT/HCPCS: 36415; 80053; 85025; 99283-25